=== PATIENT | female | born 1940 | race Caucasian/White ===

== ENCOUNTER 2024-01-23 14:14 | Outpatient (OUT) | payer MEDICARE, SELFPAY ==
--- NOTE | 2024-01-23 | XR_ITS ---
The [address] [address] Patient Name: WALDO BROWN MRN: [id number] date: 1940 Sex: F Assigned Patient Location: Current Patient Location: Accession/Order Number: [id number] Exam Date: 01/23/2024 14:15 Report Date: 01/24/2024 07:32 At the request of: FLY LYON Procedure: XR hip LT 1V w/ pelvis PROCEDURE: XR hip LT 1V w/ pelvis COMPARISON: 12/29/2023 HISTORY: LEFT HIP AND PELVIS PAIN FINDINGS: BONES:Stable left subcapital femur fracture with internal fixation utilizing 3 screws. Subtle increase in sclerosis consistent with healing. 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 Mild to moderate right hip osteoarthritis. Degenerative spondylosis of the spine SOFT TISSUES:Negative. No visible soft tissue swelling. EFFUSION:None visible. OTHER: Negative. XR/XR hip LT 1V w/ pelvis IMPRESSION: Stable healing left subcapital femur fracture with internal fixation Electronically authenticated by: PHYLICIA DUMONT Date: 01/24/2024 07:32
== END 2024-01-23 14:15 | disposition home or self-care (01) ==
LOC: EC 14:14
PROVIDERS: PCP Student in an Organized Health Care Education/Training Program; Visit Provider Student in an Organized Health Care Education/Training Program
DX: S72.002D Fracture of unspecified part of neck of left femur, subsequent encounter for closed fracture with routine healing (principal)
CPT/HCPCS: 73501